=== PATIENT | female | born 1945 | race Caucasian/White ===

== ENCOUNTER 2016-06-03 05:37 | Inpatient (IN) | payer OTHER ==
[2016-05-19 12:56] LABS: HEMATOCRIT 38.5 % (37.0-47.0); HEMOGLOBIN 13.3 gm/dL (12.0-15.0); MCH 32.4 pg (26.0-34.0); MCHC 34.7 g/dL (28.0-37.0); MCV 93.5 fL (80.0-100.0); RBC 4.11 mil/uL (4.20-5.00); RDW 12.8 % (10.5-14.5); WBC 6.2 thou/uL (4.0-11.0)
[2016-05-19 12:57] LABS: URINE BILIRUBIN NEGATIVE (Negative); URINE BLOOD NEGATIVE (Negative); URINE COLOR YELLOW; URINE GLUCOSE-RANDOM* NEGATIVE (Negative); URINE KETONES NEGATIVE (Negative); URINE LEUKOCYTES-REFLEX NEGATIVE (Negative); URINE PROTEIN (DIPSTICK) NEGATIVE (Negative); URINE SPECIFIC GRAVITY <= 1.005 (1.003-1.035); URINE UROBILINOGEN 0.2 E.U./dl (0.2-1.0)
[2016-05-19 13:07] LABS: ALBUMIN 3.8 g/dL (3.4-5.0); CALCIUM 8.9 mg/dL (8.5-10.1); CREATININE 0.9 mg/dL (0.6-1.3); POTASSIUM 3.7 mmol/L (3.5-5.1)
[2016-05-19 13:08] LABS: PROTIME 10.5 Seconds (9.3-11.4)
[~2016-06-03] VITALS: Ht 160 cm; Wt 70.1 kg
[2016-06-03] VITALS (7 sets, daily range): BP systolic 145–165; BP diastolic 77–96
--- NOTE | ~2016-06-03 | O ---
[facility] [address] [address] OPERATIVE REPORT Name: MEGHNA FINNEY Room #: 536-P DIS IN M.R.#: [id number] Admission: 06/03/16 Attend Phys: Aric Colin MD Discharge: 06/06/16 Date of : 41 Report #: [id number] THIS REPORT FOR: //name// CC: Angel Colin DATE OF SERVICE: 06/03/2016 PREOPERATIVE DIAGNOSIS: Left knee degenerative joint disease, severe. POSTOPERATIVE DIAGNOSIS: Left knee degenerative joint disease, severe. PROCEDURE: Left total knee arthroplasty. SURGEON: Aric Colin MD. ANESTHETIC: General. INDICATIONS: See hospital H and P. TELEGRAPH EQUIPMENT MAINTAINER: Arnol Wiggins, nurse practitioner. INDICATIONS FOR TELEGRAPH EQUIPMENT MAINTAINER: During the course of operation, extensive manipulation, retraction, and limb positioning was required. This was afforded to me by my imaging assistant. IMPLANTS UTILIZED: We used a DePuy PFC knee system. We used a size 3 press-fit cruciate-retaining femoral component, size 2.5 tibial tray with an 8 mm thickness insert, with a 35 mm oval dome patella. DESCRIPTION OF PROCEDURE: After adequate general anesthesia had been obtained, the patient's left lower extremity was prepped and draped in the usual meticulous sterile fashion. Limb was exsanguinated with gravity. Tourniquet was inflated to 350 torr. Anterior midline incision was made, subQ divided sharply. Hemostasis obtained with electrocautery. Medial parapatellar incision was made. Infrapatellar fat pad excised. Medial release performed. The drill was used to drill the distal femur. This hole was enlarged, irrigated, suctioned, and the intramedullary guide placed the full length of the femur. Distal femoral cutting guide pinned to the appropriate height, distal femoral cut was made. Size 3 was appropriate size for this patient with the measuring device. We marked the distal femur, impacted the cutting guide into place and the anterior, posterior, and chamfer cuts were made. Rongeur was used to remove additional osteophytes. At this time, the ACL was transected, tibia translated anteriorly, and menisci [facility] [address] [place] [address] OPERATIVE REPORT Name: MEGHNA FINNEY Room #: 536-P DIS IN M.R.#: [id number] Admission: 06/03/16 Attend Phys: Aric Colin MD Discharge: 06/06/16 Date of : 41 Report #: [id number] were excised. The drill was used to drill the central portion of the tibia. This hole was enlarged, irrigated, suctioned, and the intramedullary guide placed the full length of tibia. Proximal tibial cutting guide placed at appropriate height. Proximal tibia cut was made. The 2-1/2 tray gave us the best coverage on the tibia. Trial components were put in position. With the 8 spacer, she had the best flexion and extension gap. She did have slight imbalance on extension with being more tight laterally. I released the IT band, and this resulted in improved balance. Patella tracked normally. At this time, patella was measured, cutting guide clamped into place, patellar cut was made, 35 template gave us the best coverage. Pedicles were drilled, trial component put in position, it tracked normally. At this time, tibial tray rotation marked, distal femur drilled. Trial components were removed. The knee was irrigated with both pulse lavage and antibiotic irrigation. Bone plugs were placed in proximal tibia and distal femur. The cement was vacuum mixed, and when it reached the appropriate consistency, the knee was thoroughly dried. The tibial tray was cemented into place. Excess cement was removed. The polyethylene liner was impacted in to place. The femur impacted in to place, and the knee was taken out to 30 degrees of flexion. With uniform compression placed across the components, patellar button was then cemented into place, and again excess cement was removed. At this time, irrigation was placed in the wound and allowed to rest in the wound until the cement fully cured. When it had done so, the knee was irrigated, dried thoroughly and inspected. Drains were placed superolaterally both deep and superficial. The retinacular layer closed with a combination of interrupted [id number] #1 Vicryl, as well as running #1 Tevdek. SubQ closed with 2-0 Monocryl. Skin closed with adam. Sterile compressive dressing applied. Tourniquet deflated. <ELECTRONICALLY SIGNED> By: Aric Colin MD 06/07/16 1736 [id number] Aric Colin MD /nt
--- NOTE | ~2016-06-03 | H ---
[facility] [address] [address] HISTORY AND PHYSICAL Name: MEGHNA FINNEY ANN Room #: 536-P DIS IN M.R.#: [id number] Admission: 06/03/16 Attend Phys: Aric Colin MD Discharge: 06/06/16 Date of : 41 Report #: [id number] THIS REPORT FOR: //name// For History and Physical, please see office documentation/handwritten note in the patient's medical record. <ELECTRONICALLY SIGNED> By: Aric Colin MD 06/07/16 1736 [id number] Aric Colin MD /
[~2016-06-03 05:37] MED LIST: ESTRADIOL 1 MG T1 M1 PO; ESTRATEST PO; FISH OIL + VIT1 EACH PO; FLEXERIL PO; FLONASE 0.05%50 MCG NASAL; FLONASE16 GM INH; HYDROCHLOROTH12.5 MG PO; IBUPROFEN 200200 M1 PO; IMITREX 25 MG T25 M1 PO; LISINOPRIL20 MG PO; LUVOX 50MG TABL50 M1 PO; MULTIVITAMINS PO; POTASSIUM20 PO; PRINIVIL40 MG PO; SIMVASTATIN20 MG PO; STOOL SOFTENER100 MG PO; THERA-M CAPLET1 EACH PO; VITAMIN D1000 UNI1 PO; ZOCOR 10 MG TAB10 MG PO
[2016-06-04] VITALS: BP 138/65
[2016-06-04 04:00] VITALS: BP 131/59
[2016-06-04 05:54] LABS: ABSOLUTE NEUTROPHILS 5.7 thou/uL (1.4-8.2); BASOPHILS 0.2 % (0.0-2.0); EOSINOPHILS 0.1 % (0.0-3.0); HEMATOCRIT 34.2 % (37.0-47.0); HEMOGLOBIN 11.9 gm/dL (12.0-15.0); LYMPHOCYTES 19.1 % (24.0-44.0); MCH 32.7 pg (26.0-34.0); MCHC 34.6 g/dL (28.0-37.0); MCV 94.5 fL (80.0-100.0); MONOCYTES 8.1 % (1.0-8.0); PLATELET COUNT 193 thou/uL (150-400); POLYS 72.5 % (36.0-66.0); RBC 3.62 mil/uL (4.20-5.00); RDW 12.3 % (10.5-14.5); WBC 7.9 thou/uL (4.0-11.0)
[2016-06-04 05:57] LABS: MANUAL DIFF NO
[2016-06-04 06:21] LABS: CALCIUM 8.4 mg/dL (8.5-10.1); CREATININE 0.9 mg/dL (0.6-1.0); POTASSIUM 3.7 mmol/L (3.5-5.1); TOTAL BILIRUBIN 0.5 mg/dL (<0.1-1.0)
[2016-06-04 07:59] VITALS: BP 130/63
[2016-06-04 15:17] VITALS: BP 176/65
[2016-06-04 17:13] LABS: HEMATOCRIT 35.4 % (37.0-47.0); MCH 32.4 pg (26.0-34.0); MCV 95.3 fL (80.0-100.0); RBC 3.71 mil/uL (4.20-5.00); RDW 12.4 % (10.5-14.5); WBC 9.5 thou/uL (4.0-11.0)
[2016-06-04 19:25] VITALS: BP 168/71
[2016-06-05 03:15] VITALS: BP 121/59
[2016-06-05 05:31] LABS: HEMATOCRIT 28.4 % (37.0-47.0); MCH 32.9 pg (26.0-34.0); MCV 93.9 fL (80.0-100.0); RBC 3.02 mil/uL (4.20-5.00); RDW 12.4 % (10.5-14.5); WBC 7.7 thou/uL (4.0-11.0)
[2016-06-05 05:35] LABS: HEMOGLOBIN 9.9 gm/dL (12.0-15.0)
[2016-06-05] MEDS ORDERED: XARELTO10 MG PO (06:45)
[2016-06-05] MEDS ORDERED: HYDROCODONE-APA1 TA1 PO (06:45)
[2016-06-05 07:05] VITALS: BP 152/67
[2016-06-05 15:30] VITALS: BP 147/58
[2016-06-05 19:50] VITALS: BP 148/71
[2016-06-06 03:44] VITALS: BP 140/79
[2016-06-06 06:26] LABS: HEMATOCRIT 26.4 % (37.0-47.0); HEMOGLOBIN 9.3 gm/dL (12.0-15.0); MCHC 35.2 g/dL (28.0-37.0); MCV 93.7 fL (80.0-100.0); RBC 2.82 mil/uL (4.20-5.00); RDW 12.5 % (10.5-14.5); WBC 6.8 thou/uL (4.0-11.0)
[2016-06-06 06:35] LABS: CALCIUM 8.4 mg/dL (8.5-10.1); CREATININE 0.8 mg/dL (0.6-1.0); MAGNESIUM 1.9 mg/dL (1.8-2.4); POTASSIUM 3.8 mmol/L (3.5-5.1)
[2016-06-06 07:32] VITALS: BP 150/80
[2016-06-06 09:26] VITALS: BP 150/80
[2016-06-06 12:37] VITALS: BP 150/80
== END 2016-06-06 11:10 | disposition home health service (06) | DRG 470 ==
LOC: PRE 05:37 → TBA 05:40 → 5S 05:40 → PRE 11:07 → 5S 06-06 11:10
PROVIDERS: Nurse Practitioner; Orthopaedic Surgery
PROC: 0SRD0J9 Replacement of Left Knee Joint with Synthetic Substitute, Cemented, Open Approach (ICD-10-PCS; principal; 2016-06-03)
DX: M17.12 Unilateral primary osteoarthritis, left knee (principal); I10 Essential (primary) hypertension; E78.5 Hyperlipidemia, unspecified; D64.9 Anemia, unspecified; F32.9 Major depressive disorder, single episode, unspecified; F41.9 Anxiety disorder, unspecified; G43.909 Migraine, unspecified, not intractable, without status migrainosus; I49.9 Cardiac arrhythmia, unspecified; Z79.899 Other long term (current) drug therapy
CPT/HCPCS: 10785; 50010; 50101; 50411; 50612; 50954; 51130; 51225; 51320; 51412; 51771; 52001; 52282; 53000; 53078; 53364; 56525; 56527; 62110; 62900; 64042; 70005